=== PATIENT | female | born 1980 | race Two or more races ===

== ENCOUNTER 2021-04-24 00:25 | Emergency (ER) | payer OTHER ==
[~2021-04-24] VITALS: Ht 165.1 cm; Wt 68.0 kg
[2021-04-24 01:08] LABS: BASOPHILS % (AUTO) 0.3 % (0.0-2.0); HEMATOCRIT 36 % (33-45); HEMOGLOBIN 12.1 g/dL (11.5-14.8); LYMPHOCYTES # (AUTO) 0.9 K/uL (0.8-4.8); LYMPHOCYTES % (AUTO) 11.9 % (20.0-44.0); MEAN CORPUSCULAR HGB CONC 33 g/dl (31.0-36.0); MEAN CORPUSCULAR VOLUME 90 fL (82-100); MONOCYTES # (AUTO) 0.3 K/uL (0.1-1.30); MONOCYTES % (AUTO) 4.5 % (2.0-12.0); NEUTROPHILS # (AUTO) 6.3 K/uL (1.8-8.9); NEUTROPHILS % (AUTO) 83.3 % (43.0-81.0); PLATELET COUNT (AUTO) 309 K/uL (150-450); RED BLOOD CELL COUNT(AUTO) 4.04 MIL/uL (4.0-5.2); WHITE BLOOD COUNT (AUTO) 7.5 K/uL (4.3-11.0)
[2021-04-24 01:13] LABS: CALCIUM, SERUM 8.5 mg/dL (8.5-10.1); CREATININE 0.5 mg/dL (0.6-1.3); POTASSIUM 3.7 mmol/L (3.5-5.1)
[2021-04-24 01:18] LABS: ALBUMIN 3.8 g/dL (3.4-5.0); BILIRUBIN,DIRECT 0.1 mg/dL (0.0-0.2); BILIRUBIN,TOTAL 0.1 mg/dL (0.2-1.0); TOTAL PROTEIN, SERUM 7.8 g/dL (6.4-8.2)
[2021-04-24] MEDS ORDERED: IBUPROFEN 600 MG TABLET ONE (01:39)
--- NOTE | 2021-04-24 02:05 | NUR ---
Patient discharged in stable condition. Written and verbal after care instructions given to [employer]. In custody.
[2021-04-24 02:07] VITALS: BP 122/76
[2021-04-24] MEDS ORDERED: IBUPROFEN 600 MG TABLET PO ONE (06:00)
== END 2021-04-24 02:07 | disposition home or self-care (01) ==
LOC: ER 00:27
DX: F10.129 Alcohol abuse with intoxication, unspecified (principal); Y90.6 Blood alcohol level of 120-199 mg/100 ml
CPT/HCPCS: 36415; 80048-TC; 80076-TC; 85025-TC; G0480